=== PATIENT | male | born 1995 | race African-American/Black ===

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

== ENCOUNTER 2019-08-15 23:21 | Emergency (ER) | payer MEDICAID ==
[~2019-08-15] VITALS: Ht 175.3 cm; Wt 62.0 kg
[2019-08-15 23:33] VITALS: BP 127/71
== END 2019-08-16 00:30 | disposition home or self-care (01) ==
LOC: ER 23:21
DX: L03.011 Cellulitis of right finger (principal); F12.10 Cannabis abuse, uncomplicated
CPT/HCPCS: 10060; 99283

== ENCOUNTER 2022-03-22 17:26 | Emergency (ER) | payer MEDICAID, OTHER ==
[~2022-03-22] VITALS: Ht 175.3 cm; Wt 54.4 kg
[2022-03-22 20:55] LABS: BASOPHILS % 0.3 % (0.0-2.0); EOSINOPHILS % 2.5 % (0.0-5.0); HEMATOCRIT. 34.2 % (42.0-52.0); HEMOGLOBIN. 11.2 g/dL (14.0-18.0); LYMPHOCYTES % 22.6 % (20.0-50.0); MEAN CORPUSCULAR HEMOGLOBIN 27.9 pg (28.0-32.0); MEAN CORPUSCULAR VOLUME 84.9 fL (80.0-94.0); MEAN PLATELET VOLUME 8.9 fl (7.4-10.4); NEUTROPHILS % 65.6 % (40.0-76.0); PLATELET 539 x1000/uL (130-400); RED BLOOD CELL COUNT 4.03 mill/uL (4.7-6.1); RED CELL DISTRIBUTION WIDTH 16.6 % (11.6-14.6)
[2022-03-22 20:57] LABS: CHLORIDE 99 mEq/L (98-107)
[2022-03-22 21:06] LABS: HCG SCREEN NEGATIVE
[2022-03-22] MEDS ORDERED: KETOROLAC 30MG/ML VIAL IV STA (23:16)
[2022-03-22] MEDS ORDERED: PIPERACILLIN/TAZ 3.375G PREMIX 50 ML IV ONE (23:30)
[2022-03-22] MEDS ORDERED: SODIUM CHLORIDE 0.9% 1000ML BAG (SEPSIS BOLUS) IV ONE (23:30)
[2022-03-22] MEDS ORDERED: VANCOMYCIN 1G PREMIX 200 ML IV ONE (23:30)
[2022-03-23] MEDS ORDERED: PIPERACILLIN/TAZ 3.375G PREMIX 50 ML IV NR (02:00)
[2022-03-23] MEDS ORDERED: KETOROLAC 30MG/ML VIAL IV NR (02:00)
[2022-03-23 10:23] VITALS: BP 127/73
== END 2022-03-23 10:39 | disposition short-term general hospital (02) ==
LOC: ER 17:26
DX: R10.84 Generalized abdominal pain (principal); E27.9 Disorder of adrenal gland, unspecified; L02.01 Cutaneous abscess of face; R42 Dizziness and giddiness; R53.1 Weakness; M79.18 Myalgia, other site
CPT/HCPCS: 36415; 71045; 74176; 80053; 83605; 83690; 83880; 84484; 84703; 85025; 87040; 96361; 96365; 96367; 96375; 99291; J1885; J2543; J3370; J7030

== ENCOUNTER 2022-05-20 16:49 | Emergency (ER) | payer OTHER ==
[~2022-05-20] VITALS: Ht 177.8 cm; Wt 59.0 kg
[2022-05-20 16:52] VITALS: BP 114/69
[2022-05-20] MEDS ORDERED: LIDOCAINE HCL 1% 20ML VIAL (Pyxis) INJ INFIL ONE (18:15)
[2022-05-20 19:04] LABS: BASOPHILS % 1.3 % (0.0-2.0); EOSINOPHILS % 9.8 % (0.0-5.0); HEMATOCRIT. 29.7 % (42.0-52.0); HEMOGLOBIN. 9.7 g/dL (14.0-18.0); LYMPHOCYTES % 23.5 % (20.0-50.0); MEAN CORPUSCULAR HEMOGLOBIN 27.4 pg (28.0-32.0); MEAN CORPUSCULAR VOLUME 83.6 fL (80.0-94.0); MEAN PLATELET VOLUME 9.4 fl (7.4-10.4); MONOCYTES % 6.2 % (2.0-8.0); NEUTROPHILS % 59.2 % (40.0-76.0); PLATELET 296 x1000/uL (130-400); RED BLOOD CELL COUNT 3.55 mill/uL (4.7-6.1)
[2022-05-20] MEDS ORDERED: IBUPROFEN 600MG TABLET PO ONE (20:00)
== END 2022-05-20 20:24 | disposition home or self-care (01) ==
LOC: ER 16:56
DX: L02.11 Cutaneous abscess of neck (principal); Z98.890 Other specified postprocedural states
CPT/HCPCS: 10060; 36415; 85025; 99283; Z7610

== ENCOUNTER 2022-05-27 11:51 | Emergency (ER) | payer OTHER ==
[~2022-05-27] VITALS: Ht 170.2 cm; Wt 64.0 kg
[2022-05-27] MEDS ORDERED: LEVETIRACETAM 500MG TABLET PO NR (12:30)
[2022-05-27 14:11] LABS: BASOPHILS % 1.1 % (0.0-2.0); HEMATOCRIT. 34.9 % (42.0-52.0); HEMOGLOBIN. 11.4 g/dL (14.0-18.0); LYMPHOCYTES % 12.2 % (20.0-50.0); MEAN CORPUSCULAR HEMOGLOBIN 27.7 pg (28.0-32.0); MEAN PLATELET VOLUME 9.8 fl (7.4-10.4); MONOCYTES % 4.6 % (2.0-8.0); NEUTROPHILS % 77.1 % (40.0-76.0); PLATELET 387 x1000/uL (130-400); RED CELL DISTRIBUTION WIDTH 15.5 % (11.6-14.6)
[2022-05-27 14:15] LABS: CHLORIDE 96 mEq/L (98-107)
[2022-05-27 14:35] LABS: ETHANOL BLOOD < 10 mg/dL
[2022-05-27] MEDS ORDERED: KEPP500 MT (14:42)
[2022-05-27 20:00] VITALS: BP 115/65
== END 2022-05-27 23:53 | disposition home or self-care (01) ==
LOC: ER 11:51
DX: G40.909 Epilepsy, unspecified, not intractable, without status epilepticus (principal); R53.1 Weakness; R74.8 Abnormal levels of other serum enzymes; D64.9 Anemia, unspecified; Z91.14 Patient's other noncompliance with medication regimen; Z79.899 Other long term (current) drug therapy
CPT/HCPCS: 36415; 80053; 80320; 85025; 99285; G0480

== ENCOUNTER 2022-07-02 18:16 | Emergency (ER) | payer OTHER ==
[~2022-07-02] VITALS: Ht 180.3 cm; Wt 69.0 kg
[~2022-07-02 18:16] MED LIST: KEPP500 MT
[2022-07-02] MEDS ORDERED: IBUPROFEN 400MG TABLET PO ONE (19:15)
[2022-07-02] MEDS ORDERED: ACETAMINOPHEN 325MG TABLET PO ONE (19:15)
[2022-07-02 21:27] LABS: BASOPHILS % 1.2 % (0.0-2.0); EOSINOPHILS % 2.9 % (0.0-5.0); HEMATOCRIT. 37.4 % (42.0-52.0); HEMOGLOBIN. 12.5 g/dL (14.0-18.0); LYMPHOCYTES % 12.2 % (20.0-50.0); MEAN CORPUSCULAR HEMOGLOBIN 27.9 pg (28.0-32.0); MEAN CORPUSCULAR VOLUME 83.9 fL (80.0-94.0); MEAN PLATELET VOLUME 8.1 fl (7.4-10.4); MONOCYTES % 4.2 % (2.0-8.0); NEUTROPHILS % 79.5 % (40.0-76.0); PLATELET 451 x1000/uL (130-400); RED BLOOD CELL COUNT 4.46 mill/uL (4.7-6.1); RED CELL DISTRIBUTION WIDTH 14.3 % (11.6-14.6)
[2022-07-02 21:32] LABS: CHLORIDE 91 mEq/L (98-107)
[2022-07-02 21:41] LABS: ETHANOL BLOOD < 10 mg/dL
[2022-07-02 22:03] VITALS: BP 111/70
[2022-07-02 23:14] LABS: CLARITY URINE CLEAR (CLEAR); COLOR URINE YELLOW (YELLOW); KETONES URINE NEGATIVE (NEGATIVE); LEUKOCYTE ESTERASE URINE NEGATIVE (NEGATIVE); NITRITE URINE NEGATIVE (NEGATIVE); OCCULT BLOOD URINE NEGATIVE (NEGATIVE); PH URINE 7.5 (4.5-8.0); PROTEIN URINE TRACE (NEGATIVE); SPECIFIC GRAVITY URINE 1.021 (1.005-1.030)
[2022-07-02] MEDS ORDERED: ACET-2708 MT (23:53)
[2022-07-03] MEDS ORDERED: KEPP500 MT (01:41)
== END 2022-07-03 02:00 | disposition home or self-care (01) ==
LOC: ER 18:16
DX: B34.9 Viral infection, unspecified (principal); R73.9 Hyperglycemia, unspecified; Z20.822 Contact with and (suspected) exposure to COVID-19
CPT/HCPCS: 36415; 71045; 80053; 80320; 81003; 83690; 85025; 87040; 87086; 87426; 87804; 99284; C9803; G0480

== ENCOUNTER 2022-07-03 06:22 | Emergency (ER) | payer OTHER ==
[~2022-07-03] VITALS: Ht 175.3 cm; Wt 61.0 kg
[~2022-07-03 06:22] MED LIST changes: +ACET-2708 MT
[2022-07-03] MEDS ORDERED: ACETAMINOPHEN 325MG TABLET PO ONE (08:45)
[2022-07-03 16:46] VITALS: BP 122/80
== END 2022-07-03 16:47 | disposition home or self-care (01) ==
LOC: ER 06:22
DX: R51.9 Headache, unspecified (principal); Z59.02 Unsheltered homelessness
CPT/HCPCS: 99282

== ENCOUNTER 2022-07-03 19:14 | Emergency (ER) | payer OTHER ==
[~2022-07-03] VITALS: Ht 175.3 cm; Wt 59.0 kg
[2022-07-04 08:29] VITALS: BP 131/88
== END 2022-07-04 08:30 | disposition short-term general hospital (02) ==
LOC: ER 20:53
DX: M89.50 Osteolysis, unspecified site (principal); Z91.14 Patient's other noncompliance with medication regimen
CPT/HCPCS: 99285